=== PATIENT | male | born 1990 | race Caucasian/White ===

== ENCOUNTER 2021-09-28 18:06 | Emergency (ER) | payer OTHER ==
[~2021-09-28] VITALS: Ht 172.7 cm; Wt 83.9 kg
[2021-09-28 19:02] VITALS: BP 144/94
[2021-09-28] MEDS ORDERED: IBUP-1955 PO (20:17)
== END 2021-09-28 20:22 | disposition home or self-care (01) ==
LOC: ER 18:06
DX: G89.29 Other chronic pain (principal); M25.561 Pain in right knee
CPT/HCPCS: 73564-TC